=== PATIENT | female | born 1940 | race Caucasian/White ===

== ENCOUNTER → 2023-09-29 12:48 | Outpatient (REF) | payer MEDICARE, BC, SELFPAY | LOC: MRI 3T 12:48 | PROVIDERS: ATTENDING PHYSICIAN Physician Assistant Surgical; FAMILY PHYSICIAN Emergency Medicine | DX: M25.551 Pain in right hip (principal) | CPT/HCPCS: 73721 ==

== ENCOUNTER → 2023-11-30 13:16 | Outpatient (REF) | payer MEDICARE, BC, SELFPAY | LOC: RAD 13:16 | PROVIDERS: ATTENDING PHYSICIAN Physician Assistant; FAMILY PHYSICIAN Emergency Medicine | DX: K59.00 Constipation, unspecified (principal) | CPT/HCPCS: 74018 ==

== ENCOUNTER 2023-12-10 10:47 | Emergency (ER) | payer MEDICARE, BC, SELFPAY ==
[2023-12-10 11:03] VITALS: BP 163/90
[2023-12-10 12:09] LABS: % Basophils 0.2 % (0-2); % Eosinophils 0.2 % (0-6); % Immature Granulocytes 0.2 % (0-0.5); % Lymphocytes 7.8 % (20.5-51.1); % Monocytes 3.9 % (1.7-9.3); % Neutrophils 87.7 % (42.2-75.2); Absolute Monocytes 0.5 10^3/uL (0.1-0.6); Hematocrit 41.1 % (37.0-47.0); Hemoglobin 14.5 g/dL (12.0-16.0); Mean Corp Hgb Conc. 35.3 g/dL (33.0-37.0); Mean Corpuscular Volume 96.3 fL (81.0-99.0); Mean Platelet Volume 10.2 fL (7.4-10.4); Nucleated Red Blood Cells % 0 %; Platelet Count 479 10^3/uL (130-400); Red Blood Cell Count 4.27 10^6/uL (4.20-5.40); Red Cell Dist. Width 13.7 % (11.5-14.5); White Blood Cell Count 12.5 10^3/uL (4.8-10.8)
--- NOTE | 2023-12-10 12:14 | ED.GENMED ---
History of Present Illness
General
Chief Complaint: Abdominal Pain
Source: patient
Time Seen by Provider: 12/10/23 11:51
History of Present Illness
History of Present Illness:
83yoF with a history of Crohn's disease not currently on medication presenting for evaluation of constipation. She has been having ongoing issues with constipation over the past 3 weeks. She states she is only passing small slivers of stool at a
time. She has been taking Miralax BID without relief. She was sent for a KUB on 11/30/23 which showed a nonobstructive bowel gas pattern. She took multiple doses of ex-lax as well as Dulcolax yesterday and she was able to have multiple loose bowel
movements. She is feeling better today. She reports nausea but denies any vomiting. She has a 'funny feeling' in her abdomen. She denies any fevers, difficulty urinating, chest pain, shortness of breath. No previous abdominal surgeries.
Past History
Past History
ED Past Medical History: Asthma, Hypothyroidism and Other (pneumonia, crohn's.)
ED Past Surgical History: None
Social History
Tobacco: Non-smoker
Alcohol: None
Drug: None
Living: with family
Employment: Employed
Phy Exam
General Physical Exam
General Presentation: well appearing and no apparent distress
General age: appears stated age
General Skin: warm and dry
General Habitus: normal
General Mental: alert
General Hydration: appears well hydrated
Cardiovascular Exam
Cardiovascular Exam: regular rate/rhythm
Pulmonary Exam
Pulmonary Exam: no respiratory distress
Gastrointestinal Exam
Gastrointestinal Exam: non tender, soft and non distended
Skin Exam
Skin Exam: normal color and warm/dry
Psychiatric Exam
Psychiatric Exam: normal mood/affect
Course
Orders/Labs/Results
Orders:
Orders
12/10/23 11:42
IV Insert/Care/Rem.- Treatment PRN
12/10/23 11:53
Complete Blood Count/With Diff Urgent
Comprehensive Metabolic Panel Urgent
Lipase Urgent
12/10/23 12:14
CT Abd/pel W Iv And Oral Contr Urgent
Comment:
Reason For Exam: Abd pain, constipation
Iohexol [Omnipaque] See Protocol PO NOW STA
Abnormal Lab Results
12/10/23
11:53
WBC 12.5 H 10^3/uL
(4.8-10.8)
MCH 34.0 H pg
(27.0-31.0)
Plt Count 479 H 10^3/uL
(130-400)
Absolute Neuts (auto) 11.0 H 10^3/uL
(1.4-6.5)
Absolute Lymphs (auto) 1.0 L 10^3/uL
(1.2-3.4)
Neutrophils % 87.7 H %
(42.2-75.2)
Lymphocytes % 7.8 L %
(20.5-51.1)
Sodium 131 L mmol/L
(135-145)
Creatinine 0.5 L mg/dL
(0.6-1.0)
Glucose 115 H mg/dl
(70-99)
12/10/23 11:53
12/10/23 11:53
Vital Signs
Initial and Last Documented VS:
Initial Vital Signs
Temp Pulse Resp BP Pulse Ox
98.2 F 73 16 163/90 98
12/10/23 11:03 12/10/23 11:03 12/10/23 11:03 12/10/23 11:03 12/10/23 11:03
Last Documented Vital Signs
Temp Pulse Resp BP Pulse Ox
98.2 F 70 15 158/86 99
12/10/23 11:03 12/10/23 16:32 12/10/23 16:32 12/10/23 16:32 12/10/23 16:32
MDM/Problems Addressed
Differential Diagnosis Includes:
83yoF here with constipation x 3 weeks. Took multiple laxatives yesterday and had several liquid BMs. C/o 'funny feeling' in abdomen. No overt pain. Remote hx of Crohn's not on medication. Patient is afebrile and hemodynamically stable. She is
well-appearing in no acute distress. No signs of peritonitis on abdominal exam. Differential diagnosis includes but is not limited to: Constipation, bowel obstruction, malignancy, IBD exacerbation
Initial ED plan: Check abdominal labs and CT abdomen.
*Critical Care Note
Total Time (30-74mins, 75-104mins- exclusive of procedures): Not Applicable
Update Note
Update Note:
Labs reveal a leukocytosis with a white count of 12.5 which is nonspecific. Remainder of labs overall unremarkable including normal renal function, LFTs, and lipase. CT abdomen shows mild hazy inflammatory change in the mesenteric fat of the left
abdomen of unclear significance. No other acute findings on imaging. Specifically, there is no evidence of bowel obstruction or diverticulitis. No indication for admission at this time. She was advised to follow-up with her operations vice president
and PCP. ED return precautions were discussed. She was discharged in stable condition.
ED Attending Note
-
Portions of this chart may have been created with voice recognition software.� Occasional wrong word or��sound alike� substitutions may have occurred due to the inherent limitations of voice recognition software.
Discharge Plan
Departure
Patient Disposition: Home (Routine Discharge)
Date of Disposition: 12/10/23
Time of Disposition: 16:15
Patient with high blood pressure during this ER visit?: Yes
Discharge Problem:
Constipation
Instructions: Constipation in adults
Prescriptions:
No Action
levothyroxine [Synthroid] 50 MCG tablet
50 mcg PO DAILY
ueivagljvof-aijzlfyyd-fnt C-Mn 1 TAB tablet
1 tab PO BID
omega-3 fatty acids-fish oil [Fish Oil] 1 CAP capsule
1 cap PO BID
multivitamin with folic acid [Tab-A-Ismael] 1 TABLET tablet
1 tab PO DAILY
mesalamine 400 MG capsule (with del rel tablets)
800 mg PO TID
Calcium
1 tab BID
levofloxacin 500 MG tablet
500 mg PO DAILY
Patient Comments:
Patient Finished medication on Monday
Referrals:
Emilee Rossi MD [Family Provider] -
Jaskaran Fenton MD [Active] -
Activity Restrictions/Additional Instructions:
Continue taking fiber and Miralax.
Please call tomorrow to follow up with your operations vice president. Return to the ER with any worsening symptoms.
Interventions
Interventions:
*Risk Screen - Suicide Last Done: 12/10/23 13:23
*General Assessment Last Done: 12/10/23 13:23
*Neglect/Abuse Screening Last Done: 12/10/23 13:23
ED- Fall Risk Assessment Last Done: 12/10/23 11:42
*Nursing Disposition Last Done: 12/10/23 16:34
AQ-Tjhxdo-Lodqkbyrpg Assessment Last Done: 12/10/23 11:42
Discharge Date and Time
Discharge Date/Time: 12/10/23 16:34
Print Language: GERMAN
[2023-12-10 12:19] LABS: ALT (SGPT) 22 U/L (0-35); AST (SGOT) 26 U/L (14-36); Alkaline Phosphatase 102 U/L (38-126); Blood Urea Nitrogen 13 mg/dl (7-17); Calcium 9.5 mg/dl (8.4-10.2); Carbon Dioxide 25 mmol/L (22-30); Chloride 102 mmol/L (98-107); Glucose 115 mg/dl (70-99); Lipase 55 U/L (23-300); Potassium 4.7 mmol/L (3.5-5.1); Sodium 131 mmol/L (135-145); Total Bilirubin 0.7 mg/dl (0.2-1.3); Total Protein 7.6 g/dl (6.3-8.2); eGFR > 60.00
[2023-12-10] MEDS: OMNIPAQUE 50 ML PO (12:28)
[2023-12-10 12:44] VITALS: BMI 22.5
[2023-12-10 16:32] VITALS: BP 158/86
== END 2023-12-10 16:34 | disposition home or self-care (01) ==
LOC: EMR 10:47
PROVIDERS: EMERGENCY PHYSICIAN Emergency Medicine; FAMILY PHYSICIAN Emergency Medicine
DX: K59.00 Constipation, unspecified (principal); R03.0 Elevated blood-pressure reading, without diagnosis of hypertension
CPT/HCPCS: 99285; 74177; 80053; 83690; 85025; Q9967

== ENCOUNTER → 2024-01-12 12:10 | Outpatient (REF) | payer MEDICARE, BC, SELFPAY | LOC: RAD 12:10 | PROVIDERS: ATTENDING PHYSICIAN Emergency Medicine | DX: R53.83 Other fatigue (principal) | CPT/HCPCS: 71046 ==

== ENCOUNTER → 2024-05-27 09:53 | Outpatient (REF) | payer MEDICARE, BC, SELFPAY | LOC: HWRCS 09:53 | PROVIDERS: ATTENDING PHYSICIAN Internal Medicine Cardiovascular Disease; FAMILY PHYSICIAN Emergency Medicine | DX: I35.1 Nonrheumatic aortic (valve) insufficiency (principal) | CPT/HCPCS: 93306 ==

== ENCOUNTER 2024-10-08 09:42 | Emergency (ER) | payer MEDICARE, BC, SELFPAY ==
[2024-10-08 09:57] VITALS: BP 172/87
[2024-10-08 10:28] LABS: % Basophils 0.6 % (0-2); % Eosinophils 2.7 % (0-6); % Immature Granulocytes 0.1 % (0-0.5); % Lymphocytes 19.5 % (20.5-51.1); % Monocytes 8.4 % (1.7-9.3); % Neutrophils 68.7 % (42.2-75.2); Absolute Basophils 0.1 10^3/uL (0-0.2); Absolute Eosinophils 0.2 10^3/uL (0-0.7); Absolute Lymphocytes 1.5 10^3/uL (1.2-3.4); Absolute Monocytes 0.7 10^3/uL (0.1-0.6); Absolute Neutrophils 5.4 10^3/uL (1.4-6.5); Hematocrit 43.7 % (37.0-47.0); Hemoglobin 14.6 g/dL (12.0-16.0); Mean Corp Hgb Conc. 33.4 g/dL (33.0-37.0); Mean Corpuscular Hgb 33.5 pg (27.0-31.0); Mean Corpuscular Volume 100.2 fL (81.0-99.0); Mean Platelet Volume 10.4 fL (7.4-10.4); Nucleated Red Blood Cells % 0 %; Platelet Count 405 10^3/uL (130-400); Red Blood Cell Count 4.36 10^6/uL (4.20-5.40); Red Cell Dist. Width 13.3 % (11.5-14.5); White Blood Cell Count 7.9 10^3/uL (4.8-10.8)
[2024-10-08 10:42] LABS: ALT (SGPT) 26 U/L (0-35); AST (SGOT) 29 U/L (14-36); Albumin 4.3 g/dl (3.5-5.0); Alkaline Phosphatase 93 U/L (38-126); Blood Urea Nitrogen 19 mg/dl (7-17); Calcium 9.7 mg/dl (8.4-10.2); Carbon Dioxide 25 mmol/L (22-30); Chloride 108 mmol/L (98-107); Glucose 101 mg/dl (70-99); Potassium 4.4 mmol/L (3.5-5.1); Sodium 138 mmol/L (135-145); Total Bilirubin 0.6 mg/dl (0.2-1.3); Total Protein 8.4 g/dl (6.3-8.2); eGFR > 60.00
[2024-10-08 10:52] LABS: Troponin I < 0.012 ng/ml
--- NOTE | 2024-10-08 13:22 | ED.GENMED ---
History of Present Illness
General
Chief Complaint: Heart Rate Problem
Time Seen by Provider: 10/08/24 12:18
History of Present Illness
History of Present Illness:
84-year-old female presenting to the emergency department for palpitations. Patient increasing fluttering in her chest in the past several days. Notes history of PVCs in the past, however felt that they are more prominent. Denies associated chest
pain. Does note some dyspnea with exertion. Denies changes in her medications. Denies fever or cough. Denies any lower extremity edema. Denies any abdominal pain. Does follow with cardiology, reports recent echocardiogram in May. Denies
additional acute medical complaints
Past History
Past History
ED Past Medical History: Asthma, Hypothyroidism and Other (pneumonia, crohn's.)
ED Past Surgical History: None
Social History
Tobacco: Non-smoker
Alcohol: None
Drug: None
Living: with family
Employment: Employed
Phy Exam
Physical Exam
Physical Exam:
General: Well-appearing, no clinical signs of dehydration, nontoxic and in no acute distress
HEENT: protecting airway
Neck: appears supple
CV: Normal heart rate, regular rhythm
Resp: No accessory muscle use, no increased work of breathing, lungs clear to auscultation bilaterally
Abd: Soft and non-distended, no tenderness to palpation
Extremities: No deformities, no swelling
Neuro: alert, no focal neurologic deficit
: deferred
Rectal: deferred
Psych: Normal affect
Skin: Intact
Course
Orders/Labs/Results
Orders:
Orders
10/08/24 09:44
EKG [Electrocardiogram (*1)] Urgent
Reason for Study: Chest Pain
EKG- Treatment ONCE
10/08/24 10:12
Complete Blood Count/With Diff Urgent
Comprehensive Metabolic Panel Urgent
Troponin I Urgent
10/08/24 13:21
Electrocardiogram (*1) Urgent
Reason for Study: Palpitations
EKG- Treatment ONCE
Abnormal Lab Results
10/08/24
10:12
MCV 100.2 H fL
(81.0-99.0)
MCH 33.5 H pg
(27.0-31.0)
Plt Count 405 H 10^3/uL
(130-400)
Absolute Monos (auto) 0.7 H 10^3/uL
(0.1-0.6)
Lymphocytes % 19.5 L %
(20.5-51.1)
Chloride 108 H mmol/L
(98-107)
BUN 19 H mg/dl
(7-17)
Creatinine 0.5 L mg/dL
(0.6-1.0)
Glucose 101 H mg/dl
(70-99)
Total Protein 8.4 H g/dl
(6.3-8.2)
10/08/24 10:12
10/08/24 10:12
Vital Signs
Initial and Last Documented VS:
Initial Vital Signs
Temp Pulse Resp BP Pulse Ox
97.8 F 65 16 172/87 98
10/08/24 09:57 10/08/24 09:57 10/08/24 09:57 10/08/24 09:57 10/08/24 09:57
Last Documented Vital Signs
Temp Pulse Resp BP Pulse Ox
97.8 F 65 16 172/87 98
10/08/24 09:57 10/08/24 09:57 10/08/24 14:00 10/08/24 09:57 10/08/24 14:00
MDM/Problems Addressed
MDM/Problems Addressed:
84-year-old female with history of thrombocytopenia presenting to the emergency department for fluttering in her chest. Vital signs on arrival are significant for high blood pressure.
On exam, patient is resting comfortably, no acute distress or discomfort. Overall benign cardiac and pulmonary exam. Patient's heart rate is regular. EKG obtained, nonischemic. No signs of arrhythmia, no sign of atrial fibrillation. Labs
obtained prior to my assessment, without significant acute abnormality. Known history of thrombocytopenia. Echo reviewed from May 2024, unremarkable. Patient also had a stress test in 2021, low risk. Will continue to monitor repeat EKG to
ensure no interval changes.
14:15 - Repeat EKG again without any concerning features. Patient does have a right bundle branch block which was not seen in 2008, however unlikely to be contributing to palpitations or fluttering. Patient is hypertensive here, however notes that
her practice coordinator is aware of this, and her blood pressure fluctuates, which is why she has not wanted to put her on any medication. Will touch base with cardiology.
14:50 - In discussion with cardiology, recommending a low-dose Cardizem. They note that they can see her in the office tomorrow at 120 with Emily. Patient is agreeable to this plan. Ultimately feel that she is stable for discharge with close
outpatient cardiology follow-up. Return precautions discussed and patient verbalized understanding
*EKG
Interpreted by ED Provider?: Yes
EKG Intrepretation Date: 10/08/24
EKG Intrepretation Time: 13:25
Interpretation: normal
Heart Rate: 65
Rate: normal
Rhythm: sinus
Mckinney: normal axis
Interval: first degree heart block
QRS Pattern: right bundle branch block
Ischemia: no ischemia
*Critical Care Note
Total Time (30-74mins, 75-104mins- exclusive of procedures): Not Applicable
ED Attending Note
-
Portions of this chart may have been created with voice recognition software.� Occasional wrong word or��sound alike� substitutions may have occurred due to the inherent limitations of voice recognition software.
Discharge Plan
Departure
Prescriptions:
No Action
levothyroxine [Synthroid] 50 MCG tablet
50 mcg PO DAILY
hscyforryyk-yfpagzohl-ecs C-Mn 1 TAB tablet
1 tab PO BID
omega-3 fatty acids-fish oil [Fish Oil] 1 CAP capsule
1 cap PO BID
multivitamin with folic acid [Tab-A-Ismael] 1 TABLET tablet
1 tab PO DAILY
mesalamine 400 MG capsule (with del rel tablets)
800 mg PO TID
Calcium
1 tab BID
levofloxacin 500 MG tablet
500 mg PO DAILY
Patient Comments:
Patient Finished medication on Monday
Referrals:
Lalito Lugo DO [Family Provider] -
Interventions
Interventions:
*Risk Screen - Suicide Last Done: 10/08/24 09:57
*Neglect/Abuse Screening Last Done: 10/08/24 09:57
ED- Cardiac Assessment Last Done: 10/08/24 14:01
ED- Pulmonary Assessment Last Done: 10/08/24 14:01
Discharge Date and Time
Print Language: QATARI
[2024-10-08 14:00] VITALS: BP 192/77
[2024-10-08 15:00] VITALS: BP 181/73
[2024-10-08] MEDS: CARDIZEM CD 120 MG PO (15:08)
== END 2024-10-08 15:30 | disposition home or self-care (01) ==
LOC: EMR 09:42
PROVIDERS: Emergency Medicine; EMERGENCY PHYSICIAN Student in an Organized Health Care Education/Training Program; FAMILY PHYSICIAN Family Medicine
DX: R00.2 Palpitations (principal); E03.9 Hypothyroidism, unspecified; I10 Essential (primary) hypertension; I49.1 Atrial premature depolarization; J45.909 Unspecified asthma, uncomplicated; K50.90 Crohn's disease, unspecified, without complications; I45.10 Unspecified right bundle-branch block; Z86.79 Personal history of other diseases of the circulatory system; Z87.01 Personal history of pneumonia (recurrent)
CPT/HCPCS: 99283; 80053; 84484; 85025; 93005

== ENCOUNTER → 2024-10-31 12:56 | Outpatient (REF) | payer MEDICARE, BC, SELFPAY | LOC: MRI 12:56 | PROVIDERS: ATTENDING PHYSICIAN Physician Assistant Surgical; FAMILY PHYSICIAN Family Medicine | DX: M19.011 Primary osteoarthritis, right shoulder (principal); M54.2 Cervicalgia | CPT/HCPCS: 72141; 73221 ==

== ENCOUNTER → 2024-12-06 08:14 | Outpatient (REF) | payer MEDICARE, BC, SELFPAY | LOC: HWRAD 08:14 | PROVIDERS: ATTENDING PHYSICIAN Family Medicine | DX: R60.0 Localized edema (principal) | CPT/HCPCS: 93970 ==

== ENCOUNTER → 2025-01-24 10:46 | Outpatient (REF) | payer MEDICARE, BC, SELFPAY | LOC: HWWDC 10:46 | PROVIDERS: ATTENDING PHYSICIAN Family Medicine | DX: M85.89 Other specified disorders of bone density and structure, multiple sites (principal); S22.060S Wedge compression fracture of T7-T8 vertebra, sequela; Z12.31 Encounter for screening mammogram for malignant neoplasm of breast | CPT/HCPCS: 77063; 77067; 77080 ==

== ENCOUNTER → 2025-03-27 13:36 | Outpatient (REF) | payer MEDICARE, BC, SELFPAY | LOC: RAD 13:36 | PROVIDERS: ATTENDING PHYSICIAN Nurse Practitioner Family | DX: R06.02 Shortness of breath (principal) | CPT/HCPCS: 71046 ==